=== PATIENT | female | born 1935 | race Native Hawaiian/Other Pacific Islander ===

== ENCOUNTER 2017-07-11 12:06 | Emergency (ER) | payer MEDICARE ==
[2017-07-11 12:36] VITALS: RESP 16; O2SAT 98
--- NOTE | 2017-07-11 13:03 | ED PDOC ---
HPI: Trauma/Fall - HPI Time Seen by Provider: 07/11/17 12:34 Chief Complaint (Nursing): Trauma Chief Complaint (Provider): Trauma History Per: Patient History/Exam Limitations: no limitations Onset/Duration Of Symptoms: Hrs Additional Complaint(s): 81 year old female presents to the emergency department with a complaint of a left scapula and right shoulder pain with a head injury after she slipped and fell on ice. Able to ambulate from house to ambulance. Denies loss of consciousness and headache. Past Medical History Reviewed: Historical Data, Nursing Documentation, Vital Signs Vital Signs: Last Vital Signs Temp 98.0 F 07/11/17 12:32 Pulse 82 07/11/17 12:32 Resp 16 07/11/17 12:32 BP 142/72 07/11/17 12:32 Pulse Ox 98 07/11/17 12:32 - Medical History PMH: HTN Denies: Chronic Kidney Disease - Family History Family History: States: Unknown Family Hx - Immunization History Hx Influenza Vaccination: Yes Hx Pneumococcal Vaccination: Yes - Allergies Allergies/Adverse Reactions: Allergies Allergy/AdvReac Type Severity Reaction Status Date / Time clindamycin Allergy ANAPHYLAXIS Verified 07/11/17 12:50 Penicillins Allergy ANAPHYLAXIS Verified 07/11/17 12:50 Review of Systems ROS Statement: Except As Marked, All Systems Reviewed And Found Negative (As per HPI, otherwise negative) Constitutional: Positive for: Other (Head injury). Negative for: Fever, Chills Musculoskeletal: Positive for: Shoulder Pain (Left shoulder and left scapula tenderness) Neurological: Negative for: Headache (loss of consciousness) Physical Exam - Reviewed Nursing Documentation Reviewed: Yes Vital Signs Reviewed: Yes - Physical Exam Appears: Positive for: No Acute Distress Head Exam: Positive for: NORMAL INSPECTION Skin: Positive for: Normal Color Cardiovascular/Chest: Positive for: Regular Rate, Rhythm. Negative for: Murmur Respiratory: Positive for: Normal Breath Sounds. Negative for: Accessory Muscle Use, Respiratory Distress Gastrointestinal/Abdominal: Positive for: Normal Exam, Soft. Negative for: Tenderness Back: Positive for: Other (Left paraspinal tenderness) Extremity: Positive for: Tenderness (Left shoulder and posterior scapula tenderness), Other (Left posterior rib tenderness). Negative for: Pedal Edema Neurologic/Psych: Positive for: Alert, Oriented (x3) - ECG O2 Sat by Pulse Oximetry: 98 (RA) Pulse Ox Interpretation: Normal Medical Decision Making Medical Decision Making: Time: 1245 Initial Impression: Multi system trauma s/p fall Initial Plan: --Percocet 5/325 mg PO --Left ribs and Chest x-ray --Left scapula x-ray --Left shoulder x-ray --Cervical Spine CT --Head CT --Reevaluation Time: 1434 --head CT FINDINGS: HEMORRHAGE: No intracranial hemorrhage. BRAIN: No mass effect or edema. Cerebral and cerebellar atrophy. Moderate chronic periventricular white matter microvascular ischemic changes. Right cerebellar lacunar infarction. VENTRICLES: Unremarkable. No hydrocephalus. CALVARIUM: Unremarkable. PARANASAL SINUSES: Unremarkable as visualized. No significant inflammatory changes. MASTOID AIR CELLS: Unremarkable as visualized. No inflammatory changes. OTHER FINDINGS: None. IMPRESSION: No acute intracranial pathology. Time: 1436 --Cervical Spine FINDINGS: VERTEBRAE: No fracture. Normal alignment. No destructive bony lesion. DISCS/SPINAL CANAL/NEURAL FORAMINA: Multilevel disc space narrowing. PARASPINAL SOFT TISSUES: Unremarkable. OTHER FINDINGS: Bilateral thyroid nodules. IMPRESSION: No acute fracture. Multilevel degenerative changes. Bilateral hypo attenuating thyroid nodules. Thyroid ultrasound can be obtained for further evaluation on a nonemergent basis. Time: 1500 --Patient transferred from Dr. Gan. --Pending x-ray. Scribe Attestation: Documented by Eva Melgar, acting as a scribe for Chelly Bryant MD. Provider Scribe Attestation: All medical record entries made by the Scribe were at my direction and personally dictated by me. I have reviewed the chart and agree that the record accurately reflects my personal performance of the history, physical exam, medical decision making, and the department course for this patient. I have also personally directed, reviewed, and agree with the discharge instructions and disposition. Disposition - Clinical Impression Clinical Impression: Head injury, Shoulder injury, Trauma of chest - Patient ED Disposition Is Patient to be Admitted: No - Disposition Referrals: [facility] [Outside] Disposition: Transfer of Care (Dr. Gan) Disposition Time: 15:00 Condition: GOOD Additional Instructions: Take motrin for pain. Apply ice on affected areas. Follow up with your PCP in 2- 3 days. Instructions: Shoulder Sprain, Closed Head Injury (DC)
[2017-07-11] MEDS ORDERED: Oxycodone/Acetaminophen 5/325 mg Tab PO STA (13:25)
[2017-07-11] MEDS ORDERED: Oxycodone/Acetaminophen 5/325 mg Tab ONE (13:28)
--- NOTE | 2017-07-11 14:36 | CT ---
PROCEDURE: CT HEAD WITHOUT CONTRAST. HISTORY: Vertigo COMPARISON: None available. TECHNIQUE: Axial computed tomography images were obtained through the head/brain without intravenous contrast. Radiation dose: Total exam DLP = 906.7 mGy-cm. This CT exam was performed using one or more of the following dose reduction techniques: Automated exposure control, adjustment of the mA and/or kV according to patient size, and/or use of iterative reconstruction technique. FINDINGS: HEMORRHAGE: No intracranial hemorrhage. BRAIN: No mass effect or edema. Cerebral and cerebellar atrophy. Moderate chronic periventricular white matter microvascular ischemic changes. Right cerebellar lacunar infarction. VENTRICLES: Unremarkable. No hydrocephalus. CALVARIUM: Unremarkable. PARANASAL SINUSES: Unremarkable as visualized. No significant inflammatory changes. MASTOID AIR CELLS: Unremarkable as visualized. No inflammatory changes. OTHER FINDINGS: None. IMPRESSION: No acute intracranial pathology.
--- NOTE | 2017-07-11 14:38 | CT ---
PROCEDURE: CT Cervical Spine without contrast HISTORY: Vertigo, fall COMPARISON: None available. TECHNIQUE: Axial computed tomography images were obtained of the cervical spine without the use of intravenous contrast. Coronal and sagittal reformatted images were created and reviewed. Radiation dose: Total exam DLP = 308.4 mGy-cm. This CT exam was performed using one or more of the following dose reduction techniques: Automated exposure control, adjustment of the mA and/or kV according to patient size, and/or use of iterative reconstruction technique. FINDINGS: VERTEBRAE: No fracture. Normal alignment. No destructive bony lesion. DISCS/SPINAL CANAL/NEURAL FORAMINA: Multilevel disc space narrowing. PARASPINAL SOFT TISSUES: Unremarkable. OTHER FINDINGS: Bilateral thyroid nodules. IMPRESSION: No acute fracture. Multilevel degenerative changes. Bilateral hypo attenuating thyroid nodules. Thyroid ultrasound can be obtained for further evaluation on a nonemergent basis.
--- NOTE | 2017-07-11 15:11 | ED PDOC ---
HPI: Trauma/Fall - HPI Time Seen by Provider: 07/11/17 12:34 Chief Complaint (Nursing): Trauma Past Medical History Vital Signs: Last Vital Signs Temp 98.0 F 07/11/17 12:32 Pulse 82 07/11/17 12:32 Resp 16 07/11/17 12:32 BP 142/72 07/11/17 12:32 Pulse Ox 98 07/11/17 15:11 - Medical History PMH: HTN Denies: Chronic Kidney Disease - Immunization History Hx Influenza Vaccination: Yes Hx Pneumococcal Vaccination: Yes - Allergies Allergies/Adverse Reactions: Allergies Allergy/AdvReac Type Severity Reaction Status Date / Time clindamycin Allergy ANAPHYLAXIS Verified 07/11/17 12:50 Penicillins Allergy ANAPHYLAXIS Verified 07/11/17 12:50 - ECG O2 Sat by Pulse Oximetry: 98 (RA) Medical Decision Making Medical Decision Making: Time: 1500 --Patient was endorsed from Dr. Bryant to me. --Pending multiple x-ray's. Time: 152 --Left ribs and chest FINDINGS: LEFT RIBS: No fracture or focal lesion visualized. LUNGS: Clear. PLEURA: No pneumothorax or pleural fluid. CARDIOVASCULAR: Atherosclerotic aortic calcifications. Normal sized heart. No pulmonary vascular congestion. OTHER FINDINGS: None. IMPRESSION: Unremarkable radiographs of the chest and left ribs. No left rib fracture. Time: 152 --Left shoulder FINDINGS: BONES: No acute fracture. JOINTS: Mild glenohumeral joint narrowing. SOFT TISSUES: Normal. OTHER FINDINGS: None. IMPRESSION: No demonstrated fracture or dislocation. Time: 152 --Left scapula FINDINGS: The study demonstrates the osseous structures to be within normal limits. There is no evidence of fracture or dislocation. IMPRESSION: No demonstrated fracture or dislocation. Scribe Attestation: Documented by Eva Melgar, acting as a scribe for Delmy Gan MD. Provider Scribe Attestation: All medical record entries made by the Scribe were at my direction and personally dictated by me. I have reviewed the chart and agree that the record accurately reflects my personal performance of the history, physical exam, medical decision making, and the department course for this patient. I have also personally directed, reviewed, and agree with the discharge instructions and disposition. Disposition - Disposition Disposition: Transfer of Care (Dr. Gan) Disposition Time: 15:00 Forms: [employer] ([place])
--- NOTE | 2017-07-11 15:22 | RAD ---
PROCEDURE: Radiographs of the Chest and Left Ribs. HISTORY: Fall COMPARISON: None available. TECHNIQUE: Frontal radiograph of the chest and multiple oblique radiographs of the left ribs were obtained. FINDINGS: LEFT RIBS: No fracture or focal lesion visualized. LUNGS: Clear. PLEURA: No pneumothorax or pleural fluid. CARDIOVASCULAR: Atherosclerotic aortic calcifications. Normal sized heart. No pulmonary vascular congestion. OTHER FINDINGS: None. IMPRESSION: Unremarkable radiographs of the chest and left ribs. No left rib fracture.
--- NOTE | 2017-07-11 15:26 | RAD ---
PROCEDURE: Left scapula x-ray HISTORY: Fall COMPARISON: None. TECHNIQUE: AP, lateral oblique views FINDINGS: The study demonstrates the osseous structures to be within normal limits. There is no evidence of fracture or dislocation. IMPRESSION: No demonstrated fracture or dislocation.
--- NOTE | 2017-07-11 15:26 | RAD ---
PROCEDURE: Radiographs of the Left Shoulder HISTORY: Fall COMPARISON: No prior. FINDINGS: BONES: No acute fracture. JOINTS: Mild glenohumeral joint narrowing. SOFT TISSUES: Normal. OTHER FINDINGS: None. IMPRESSION: No demonstrated fracture or dislocation.
--- NOTE | 2017-07-11 15:30 | ED PDOC ---
- ECG O2 Sat by Pulse Oximetry: 98 (RA) Medical Decision Making Medical Decision Making: Time: 1500 --Patient was endorsed from Dr. Bryant to me. --Pending multiple x-ray's. Time: 152 --Left ribs and chest FINDINGS: LEFT RIBS: No fracture or focal lesion visualized. LUNGS: Clear. PLEURA: No pneumothorax or pleural fluid. CARDIOVASCULAR: Atherosclerotic aortic calcifications. Normal sized heart. No pulmonary vascular congestion. OTHER FINDINGS: None. IMPRESSION: Unremarkable radiographs of the chest and left ribs. No left rib fracture. Time: 1524 --Left shoulder FINDINGS: BONES: No acute fracture. JOINTS: Mild glenohumeral joint narrowing. SOFT TISSUES: Normal. OTHER FINDINGS: None. IMPRESSION: No demonstrated fracture or dislocation. Time: 1525 --Left scapula FINDINGS: The study demonstrates the osseous structures to be within normal limits. There is no evidence of fracture or dislocation. IMPRESSION: No demonstrated fracture or dislocation. Time: 1604 --Patient is medically stable for discharge and advised to take Motrin for pain and apply ice on affected areas. Follow up with PCP in 2-3 days. Clinical Impression: Head Injury. Shoulder injury. Trauma of the chest. Scribe Attestation: Documented by Eva Melgar, acting as a scribe for Delmy Gan MD. Provider Scribe Attestation: All medical record entries made by the Scribe were at my direction and personally dictated by me. I have reviewed the chart and agree that the record accurately reflects my personal performance of the history, physical exam, medical decision making, and the department course for this patient. I have also personally directed, reviewed, and agree with the discharge instructions and disposition. Disposition Doctor Will See Patient In The: Office Counseled Patient/Family Regarding: Studies Performed, Diagnosis, Need For Followup - Clinical Impression Clinical Impression: Head injury, Shoulder injury, Trauma of chest - POA Present On Arrival: None - Disposition Referrals: [facility] [Outside] Disposition: Routine/Home Disposition Time: 16:04 Condition: GOOD Additional Instructions: Take motrin for pain. Apply ice on affected areas. Follow up with your PCP in 2- 3 days. Instructions: Shoulder Sprain, Closed Head Injury (DC)
[2017-07-11 18:23] VITALS: BP 136/64; PULSE 69; TEMP 98.7
== END 2017-07-11 16:38 | disposition home or self-care (01) ==
LOC: H.ER 12:06
DX: S09.90XA Unspecified injury of head, initial encounter (principal); M25.512 Pain in left shoulder; W00.0XXA Fall on same level due to ice and snow, initial encounter; Y92.89 Other specified places as the place of occurrence of the external cause; E04.2 Nontoxic multinodular goiter; I10 Essential (primary) hypertension; Z88.0 Allergy status to penicillin